=== PATIENT | male | born 1940 | race Caucasian/White ===

== ENCOUNTER 2022-03-21 08:25 | Inpatient (IN) | payer MEDICARE, BC ==
[~2022-03-21] VITALS: Ht 190.5 cm; Wt 113.0 kg
[2022-03-21] MEDS ORDERED: K-DUR20 MEQ PO (08:52)
[2022-03-21] MEDS ORDERED: LASIX 40MG TABL40 MG PO (08:52)
[2022-03-21] MEDS ORDERED: TOPROL XL 25MG25 MG PO (08:53)
[2022-03-21] MEDS ORDERED: SANCTURA20 MG PO (08:53)
[2022-03-21] MEDS ORDERED: SINEMET CR 50 M1 TER PO (08:54)
[2022-03-21] MEDS ORDERED: ZYLOPRIM 300MG300 MG PO (08:54)
[2022-03-21] MEDS ORDERED: ASPIRIN 81M81 MG/TA2 PO (08:55)
[2022-03-21 09:08] LABS: BASO # 0.1 K/mm3 (0.0-0.2); BASO % 0.5 % (0.0-2.0); EOS % 0.1 % (0.0-4.0); GRAN # 9.8 K/mm3 (1.4-6.5); GRAN % 83.2 % (42.2-75.2); LYMPH # 0.8 K/mm3 (1.2-3.4); MEAN CELL VOLUME 96 fl (80.0-100.0); MEAN CORPUSCULAR HGB CONC 32 g/dl (33.0-37.0); MONO % 8.4 % (1.7-9.3); PLATELET COUNT 178 K/mm3 (130-400); RED BLOOD COUNT 3.02 M/mm3 (4.20-5.60); REDCELL DISTRIBUTION WIDTH-CV 15.1 % (11.5-14.5)
[2022-03-21 09:10] LABS: HEMOGLOBIN 9.3 g/dl (13.5-18.0); MEAN CORPUSCULAR HEMOGLOBIN 31 pg (27-31)
[2022-03-21 09:13] LABS: INR 1.3 (0.8-3.0); PROTHROMBIN TIME 15.1 SECONDS (9.7-12.8)
[2022-03-21 09:27] LABS: ALBUMIN 3.6 gm/dL (3.4-4.8); BILIRUBIN,TOTAL 1.5 mg/dL (0.2-1.2); CALCIUM 8.8 mg/dL (8.4-10.2); CREATININE, serum 1.23 mg/dL (0.72-1.25); POTASSIUM 4.4 mmol/L (3.5-4.5); TOTAL PROTEIN 6.5 gm/dL (6.2-8.1)
[2022-03-21 09:47] LABS: TROPONIN-I 0.039 ng/mL (0.00-0.033)
[2022-03-21 13:12] VITALS: BP 110/58; PULSE 94; TEMP 98.7
--- NOTE | 2022-03-21 15:51 | NUR ---
PATIENT ARRIVED IN STABLE CONDITION FROM ENDO. VITALS STABLE., PATINET APPEARS TO BE UNABLE TO KEEP STILL, KEEP SFIDGETING. OCTREOTIDE INFUSING PER ORDER.. WILL CONT TO MONITOR.
[2022-03-21 16:00] VITALS: BP 113/89; BP 139/50; PULSE 79; PULSE 80; TEMP 97.9; TEMP 98.1
--- NOTE | 2022-03-21 16:05 | NUR ---
PATIENT NOT TOLERATING POST OP CONTINOUS VITALS. BECOMING MORE AGITATED, TOLD "THOSE GIRLS" TO GET OUT.(FAMILY WAS AT BEDSIDE AT THIS TIME.) CURRENT VITALS STABLE. PATIENT ABLE TO TAKE MEDICATION AND PO FLUIS WITH NO ISSUE. CHANGED PATIENT D/T SOME BLOODY STOOL. PATIENT UNABLE TO SIT STILL, CONSTANTLY FIDGETING AND MOVING ARMS AND LEGS. BED ALARM ON. CALLIHGT WITH IN REACH. CIWA PROTOCOL INITIATED. [facility].
[2022-03-21 16:23] LABS: HEMATOCRIT 22.4 % (42.0-52.0); HEMOGLOBIN 7.4 g/dl (13.5-18.0)
[2022-03-21 19:36] LABS: CALCIUM 7.8 mg/dL (8.4-10.2); CREATININE, serum 1.17 mg/dL (0.72-1.25); MAGNESIUM 1.9 mg/dL (1.6-2.6); POTASSIUM 4.2 mmol/L (3.5-4.5)
[2022-03-21 20:08] LABS: HEMATOCRIT 22.6 % (42.0-52.0); HEMOGLOBIN 7.4 g/dl (13.5-18.0)
[2022-03-21 20:14] VITALS: BP 127/57; PULSE 109; TEMP 97.8
--- NOTE | 2022-03-21 21:53 | NUR ---
Patient assessed around 2034. Denies having pain and discomfort. Drowsy, but awakens easily. Incontinent of bowel and bladder. Incontinent cares provided, linens changed. On clear liquid diet, NPO after midnight for EGD tomorrow. Patient is aware. Patient scored 4 on detox protocol, and given PRN Ativan. Patient voices no questions, needs, or concerns at this time. In bed with call light within reach. High fall risk precautions in place. Bed alarm on.
[2022-03-21 22:13] VITALS: BP 118/50; PULSE 104; TEMP 98.4
[2022-03-22] VITALS (14 sets, daily range): BP systolic 108–141; BP diastolic 54–80; PULSE 62–127; TEMP 97.4–98.2
[2022-03-22 04:07] LABS: COLLECTION METHOD CLEAN CATCH
[2022-03-22 04:16] LABS: SQUAMOUS EPITHELIAL None Seen /hpf (0-10); URINE APPEARANCE Clear (CLEAR/HAZY); URINE BACTERIA None Seen /hpf (NONE SEEN); URINE BLOOD Negative (NEGATIVE); URINE COLOR Yellow (YELLOW); URINE GLUCOSE Negative (NEGATIVE); URINE KETONE Negative (NEGATIVE); URINE NITRATE Negative (NEGATIVE); URINE PROTEIN(semi-quant) Negative (NEGATIVE); URINE RBC 0-2 /hpf (0-2); URINE UROBILINOGEN 0.2 E.U/dL (0.2-1.0)
--- NOTE | 2022-03-22 05:23 | NUR ---
Patient only recieved PRN Ativan once this shift for detox per protocol. Continues on IV fluids and Octreotide per orders. Has been NPO since midnight for EGD today. Did sign consent for EGD today, does not want blood transfusion if needed during procedure. Urine sample obtained and sent to lab, UA negative. Continues to be in A-fib on telemetry, rate controlled. Has been incontinent of blood stools this shift. Voices no questions, needs, or concerns at this time. In bed with call light within reach. High fall risk precautions in place. Bed alarm on.
[2022-03-22 06:26] LABS: BASO % 0.9 % (0.0-2.0); EOS # 0.2 K/mm3 (0.0-0.7); EOS % 4.9 % (0.0-4.0); GRAN # 3.1 K/mm3 (1.4-6.5); GRAN % 65.7 % (42.2-75.2); LYMPH # 0.6 K/mm3 (1.2-3.4); MEAN CELL VOLUME 100 fl (80.0-100.0); MEAN CORPUSCULAR HGB CONC 32 g/dl (33.0-37.0); MONO # 0.7 K/mm3 (0.1-0.6); MONO % 15.3 % (1.7-9.3); PLATELET COUNT 147 K/mm3 (130-400); RED BLOOD COUNT 2.28 M/mm3 (4.20-5.60); REDCELL DISTRIBUTION WIDTH-CV 15.4 % (11.5-14.5)
[2022-03-22 06:36] LABS: HEMATOCRIT 22.8 % (42.0-52.0); HEMOGLOBIN 7.2 g/dl (13.5-18.0); MEAN CORPUSCULAR HEMOGLOBIN 32 pg (27-31)
[2022-03-22 06:37] LABS: CALCIUM 8.2 mg/dL (8.4-10.2); CREATININE, serum 1.23 mg/dL (0.72-1.25); MAGNESIUM 2.1 mg/dL (1.6-2.6); POTASSIUM 3.9 mmol/L (3.5-4.5)
[2022-03-22 06:59] LABS: TSH w REFLEX 0.572 uIU/mL (0.350-4.940)
[2022-03-22 07:03] LABS: TROPONIN-I 0.055 ng/mL (0.00-0.033)
--- NOTE | 2022-03-22 07:25 | NUR ---
Patient sleeping in bed in a brief, no gown. IV CDI, fluids infusing. Call light within reach. Bed alarm on
--- NOTE | 2022-03-22 08:00 | NUR ---
Patient laying in bed, easily awakened with verbal command, but the falls back to sleep. A&O. VSS. IV CDI, fluids infusing. Incontinent of BM. Nursing staff cleaning up the patient and positioned for comfort. NPO for a procedure. Call light within reach. Bed alarm on
--- NOTE | 2022-03-22 09:15 | NUR ---
Patient back to room 310 from a procedure. A&Ox4. VSS. IV CDI, fluids infusing. Nurse assisted with changing brief. Denies pain and discomfort. Nurse reoriented the patient to location, room and call light. Call light within reach. Bed alarm on
--- NOTE | 2022-03-22 10:35 | NUR ---
Balance Wheel Hand Filer met with patient to discuss discharge planning. Patient lives in [place] with his , Laly (ph#[phone]) who is at bedside. Patient sees Dr. Bolanos for primary care and obtains medications from [facility] pharmacy with no difficulties. Jose uses a cane for ambulation and also has a wheelchair that he uses when out in the community for convenience. Patient's reports [facility] is handicap accessible and that they also have a privately hired INDEPENDENT PRODUCER that comes to the home M-F to provide patient assistance. Patient plans to return home at time of discharge and is hopeful he can attend the [employer] game tomorrow. Patient states he has completed DPOA-HC, but when questioned this, he stated "whatever". SW requested PT/OT orders. Discharge Plan: Home
[2022-03-22 16:10] LABS: HEMATOCRIT 21.4 % (42.0-52.0)
--- NOTE | 2022-03-22 19:00 | NUR ---
PT ТАТЬЯНА FROM MARGARITO GUTIERREZ. THE PATIENT IS UP TO THE BATHROOM WITH PCT. CALLED FOR ASSISTANCE. PER REPORT, THE PATIENT HAS BEEN LESS IMPULSIVE AND CIWA HAS BEEN SCORING A 1.
--- NOTE | 2022-03-22 19:09 | NUR ---
Patient has had several incontinent black stools. SB assist with walker and gait belt to the bathroom. A&Ox3. VSS. IV CDI. Denies pain and discomfort. Tolerating a clear liquid diet. No further needs expressed. Call light within reach. Bed alarm on
[2022-03-23] VITALS (16 sets, daily range): BP systolic 109–141; BP diastolic 59–98; PULSE 57–101; TEMP 97.8–98.4
[2022-03-23 04:10] LABS: BASO % 0.3 % (0.0-2.0); EOS # 0.2 K/mm3 (0.0-0.7); EOS % 6.7 % (0.0-4.0); GRAN # 1.9 K/mm3 (1.4-6.5); GRAN % 56.9 % (42.2-75.2); LYMPH # 0.7 K/mm3 (1.2-3.4); LYMPH % 21.1 % (20.0-51.0); MEAN CELL VOLUME 96 fl (80.0-100.0); MEAN CORPUSCULAR HGB CONC 32 g/dl (33.0-37.0); MEAN PLATELET VOLUME 10.3 fl (7.4-10.4); MONO # 0.5 K/mm3 (0.1-0.6); MONO % 14.7 % (1.7-9.3); PLATELET COUNT 105 K/mm3 (130-400); RED BLOOD COUNT 2.35 M/mm3 (4.20-5.60); REDCELL DISTRIBUTION WIDTH-CV 15.9 % (11.5-14.5)
[2022-03-23 04:31] LABS: CREATININE, serum 0.96 mg/dL (0.72-1.25); POTASSIUM 3.5 mmol/L (3.5-4.5)
[2022-03-23 04:40] LABS: HEMATOCRIT 22.5 % (42.0-52.0); HEMOGLOBIN 7.3 g/dl (13.5-18.0); MEAN CORPUSCULAR HEMOGLOBIN 31 pg (27-31)
[2022-03-23 04:50] LABS: MAGNESIUM 2.1 mg/dL (1.6-2.6)
--- NOTE | 2022-03-23 08:00 | NUR ---
Patient sleeping in bed, easily awakened with verbal command, A&Ox3. VSS. IV CDI. Denies pain and discomfort. No reported loose stools. No further needs expressed. Call light within reach. Bed alarm on
[2022-03-23 12:25] LABS: HEMATOCRIT 21.8 % (42.0-52.0); HEMOGLOBIN 7.1 g/dl (13.5-18.0)
--- NOTE | 2022-03-23 15:48 | NUR ---
Blood transfuion started. Patient A&Ox3 sleeping, but easily awakens with verbal command. IV CDI. Denies pain and discomfort. at the bedside. VS monitored. Call light within reach. Bed alarm on
--- NOTE | 2022-03-23 16:02 | NUR ---
Nurse at the bedside first 15 minutes. Patient tolerating the blood transfusion. VSS. IV CDI. Denies pain and discomfort. Will continue to monitor. Call light within reach
--- NOTE | 2022-03-23 18:05 | NUR ---
Blood transfusion completed. Patient A&Ox4. VSS. IV CDI. Denies pain and discomfort. Patient sitting up on side of bed eating dinner with at the bedside. Has had an uneventful day. Call light within reach. Bed alarm on
[2022-03-24 00:09] VITALS: BP 97/56; PULSE 96; TEMP 98.3
[2022-03-24 04:45] VITALS: BP 110/75; PULSE 75; TEMP 97.5
[2022-03-24 06:42] LABS: BASO % 0.2 % (0.0-2.0); EOS # 0.2 K/mm3 (0.0-0.7); EOS % 3.7 % (0.0-4.0); GRAN # 2.3 K/mm3 (1.4-6.5); GRAN % 56.4 % (42.2-75.2); LYMPH # 1.1 K/mm3 (1.2-3.4); LYMPH % 26.8 % (20.0-51.0); MEAN CELL VOLUME 97 fl (80.0-100.0); MEAN CORPUSCULAR HGB CONC 32 g/dl (33.0-37.0); MEAN PLATELET VOLUME 10.7 fl (7.4-10.4); MONO # 0.5 K/mm3 (0.1-0.6); MONO % 12.4 % (1.7-9.3); PLATELET COUNT 115 K/mm3 (130-400); RED BLOOD COUNT 2.66 M/mm3 (4.20-5.60); REDCELL DISTRIBUTION WIDTH-CV 16.8 % (11.5-14.5)
[2022-03-24 06:45] LABS: HEMATOCRIT 25.7 % (42.0-52.0); HEMOGLOBIN 8.2 g/dl (13.5-18.0); MEAN CORPUSCULAR HEMOGLOBIN 31 pg (27-31)
[2022-03-24 07:06] LABS: CALCIUM 8.1 mg/dL (8.4-10.2); CREATININE, serum 0.99 mg/dL (0.72-1.25); MAGNESIUM 2.2 mg/dL (1.6-2.6); POTASSIUM 3.6 mmol/L (3.5-4.5)
[2022-03-24 07:42] VITALS: BP 115/73; PULSE 71; TEMP 97.9
--- NOTE | 2022-03-24 07:53 | NUR ---
Patient sitting up on the side of bed, A&Ox4. VSS. IV CDI. Denies pain and discomfort. States that he "feels better". No further needs expressed. Call light within reach
[2022-03-24] MEDS ORDERED: FERROUS SU325 MG/TAB PO (08:53)
[2022-03-24] MEDS ORDERED: PROTONIX 40MG T40 MG PO (08:54)
[2022-03-24] MEDS ORDERED: CARAFATE 1GM1 G PO (08:54)
--- NOTE | 2022-03-24 09:50 | NUR ---
CALLED BY MEDICAL CHARGE NURSE TO COME REMOVE PICC LINE PER ORDERS. PATIENT POSITIONED WITH HOB FLAT, INSTRUCTED TO TAKE A DEEP BREATH AND BLOW, RUE PICC LINE REMOVED EASILY. PATIENT TOLERATED WELL. NOTED BLUNT END INTACT TO PICC LINE. HELD PRESSURE, COVERED SITE WITH GAUZE, TEGADERM, AND SOFT ACEWRAP. PATIENT GIVEN POST PICC LINE REMOVAL EDUCATION BY NURSE, I GAVE FLAT TIME AND RUE RESTRICTION EDUCATION POST PICC LINE REMOVAL. AT BEDSIDE. SEE DOCUMENTATION.
--- NOTE | 2022-03-24 11:05 | NUR ---
Discharge paperwork reviewed with the patient and at the bedside. Patient verbalized an understanding to follow doctors orders. PICC line removed by MARGARITO Izquierdo. Patient transfered by wheelchair to awaiting vehicle. Personal belongings with the patient.
== END 2022-03-24 11:05 | disposition home or self-care (01) | DRG 377 ==
LOC: COL.ER 08:25 → MEDICAL 09:59
PROVIDERS: Emergency Medicine; Internal Medicine Gastroenterology; Physician Assistant; ADMIT Internal Medicine
PROC: 0DJ08ZZ Inspection of Upper Intestinal Tract, Via Natural or Artificial Opening Endoscopic (ICD-10-PCS; 2022-03-21)
PROC: 02H633Z Insertion of Infusion Device into Right Atrium, Percutaneous Approach (ICD-10-PCS; principal; 2022-03-21 15:45)
PROC: 0DJD8ZZ Inspection of Lower Intestinal Tract, Via Natural or Artificial Opening Endoscopic (ICD-10-PCS; 2022-03-22)
DX: K29.71 Gastritis, unspecified, with bleeding (principal); I21.A1 Myocardial infarction type 2; D62 Acute posthemorrhagic anemia; I48.21 Permanent atrial fibrillation; I47.20 Ventricular tachycardia, unspecified; E87.20 Acidosis, unspecified; F10.90 Alcohol use, unspecified, uncomplicated; D72.829 Elevated white blood cell count, unspecified; G20 Parkinson's disease; I11.0 Hypertensive heart disease with heart failure; I50.9 Heart failure, unspecified; I08.3 Combined rheumatic disorders of mitral, aortic and tricuspid valves; N40.0 Benign prostatic hyperplasia without lower urinary tract symptoms; E78.5 Hyperlipidemia, unspecified; Z79.82 Long term (current) use of aspirin
CPT/HCPCS: C1751; C9113; G0378; J2060; J2354; J2405; J2704; J3411; J7030; J7040; J7050; J7120; P9016

== ENCOUNTER 2022-06-17 13:52 | Emergency (ER) | payer MEDICARE, BC ==
[~2022-06-17] VITALS: Ht 190.5 cm; Wt 123.6 kg
[~2022-06-17 13:52] MED LIST: ASPIRIN 81M81 MG/TA2 PO; CARAFATE 1GM1 G PO; FERROUS SU325 MG/TAB PO; K-DUR20 MEQ PO; LASIX 20MG TABL20 MG PO; LASIX 40MG TABL40 MG PO; OMNICEF 300MG300 MG PO; PARCOPA 25/101 UDTAB NG; PROTONIX 40MG T40 MG PO; SANCTURA20 MG PO; SINEMET CR 50 M1 TER PO; TOPROL XL 25MG25 MG PO; ZYLOPRIM 100MG100 MG PO; ZYLOPRIM 300MG300 MG PO
[2022-06-17 14:11] VITALS: TEMP 92.4
[2022-06-17 15:06] LABS: BASO % 0.5 % (0.0-2.0); EOS % 0.5 % (0.0-4.0); GRAN # 3.3 K/mm3 (1.4-6.5); GRAN % 78.9 % (42.2-75.2); HEMOGLOBIN 10.4 g/dl (13.5-18.0); LYMPH # 0.5 K/mm3 (1.2-3.4); MEAN CELL VOLUME 80 fl (80.0-100.0); MEAN CORPUSCULAR HEMOGLOBIN 25 pg (27-31); MEAN CORPUSCULAR HGB CONC 31 g/dl (33.0-37.0); MEAN PLATELET VOLUME 10.7 fl (7.4-10.4); MONO # 0.3 K/mm3 (0.1-0.6); MONO % 7.9 % (1.7-9.3); PLATELET COUNT 218 K/mm3 (130-400); RED BLOOD COUNT 4.24 M/mm3 (4.20-5.60); REDCELL DISTRIBUTION WIDTH-CV 18.6 % (11.5-14.5)
[2022-06-17 15:07] LABS: HEMATOCRIT 33.9 % (42.0-52.0); INR 1.7 (0.8-3.0); PROTHROMBIN TIME 19.8 SECONDS (9.7-12.8)
[2022-06-17 15:17] LABS: ALBUMIN 3.7 gm/dL (3.4-4.8); BILIRUBIN,TOTAL 3.1 mg/dL (0.2-1.2); CALCIUM 9.3 mg/dL (8.4-10.2); CREATININE, serum 1.31 mg/dL (0.72-1.25); POTASSIUM 4.1 mmol/L (3.5-4.5); TOTAL PROTEIN 6.7 gm/dL (6.2-8.1)
[2022-06-17 17:00] VITALS: BP 119/86; PULSE 86
== END 2022-06-17 17:00 | disposition home or self-care (01) ==
LOC: COL.ER 13:52
PROVIDERS: Personal Emergency Response Attendant
DX: R09.02 Hypoxemia (principal); R18.8 Other ascites; R55 Syncope and collapse; E80.7 Disorder of bilirubin metabolism, unspecified; Z28.310 Unvaccinated for COVID-19

== ENCOUNTER 2022-06-25 10:05 | Inpatient (IN) | payer MEDICARE, BC ==
[~2022-06-25] VITALS: Ht 190.5 cm; Wt 126.9 kg
[~2022-06-25 10:05] MED LIST changes: -PARCOPA 25/101 UDTAB NG; +PARCOPA 25/101 UDTAB PO
[2022-06-25 10:48] LABS: COLLECTION METHOD CATHETER
[2022-06-25 11:14] LABS: SQUAMOUS EPITHELIAL 0-2 /hpf (0-10); URINE APPEARANCE Clear (CLEAR/HAZY); URINE BACTERIA Rare /hpf (NONE SEEN); URINE COLOR Yellow (YELLOW); URINE RBC 0-2 /hpf (0-2)
[2022-06-25] MEDS ORDERED: SANCTURA20 MG PO (11:14)
[2022-06-25 11:15] LABS: URINE BLOOD TRACE-INTACT (NEGATIVE); URINE GLUCOSE Negative (NEGATIVE); URINE KETONE TRACE (NEGATIVE); URINE NITRATE Negative (NEGATIVE); URINE PROTEIN(semi-quant) 1+ (NEGATIVE); URINE UROBILINOGEN 0.2 E.U/dL (0.2-1.0)
[2022-06-25] MEDS ORDERED: LASIX 20MG TABL20 MG PO (11:15)
[2022-06-25 12:01] LABS: BASO % 0.2 % (0.0-2.0); EOS # 0.1 K/mm3 (0.0-0.7); EOS % 2.1 % (0.0-4.0); GRAN # 4.4 K/mm3 (1.4-6.5); GRAN % 77.5 % (42.2-75.2); INR 1.6 (0.8-3.0); LYMPH # 0.7 K/mm3 (1.2-3.4); LYMPH % 12.9 % (20.0-51.0); MEAN CELL VOLUME 77 fl (80.0-100.0); MEAN CORPUSCULAR HGB CONC 31 g/dl (33.0-37.0); MEAN PLATELET VOLUME 11.1 fl (7.4-10.4); MONO # 0.4 K/mm3 (0.1-0.6); MONO % 6.9 % (1.7-9.3); PLATELET COUNT 111 K/mm3 (130-400); PROTHROMBIN TIME 18.6 SECONDS (9.7-12.8); RED BLOOD COUNT 4.05 M/mm3 (4.20-5.60); REDCELL DISTRIBUTION WIDTH-CV 18.6 % (11.5-14.5)
[2022-06-25 12:02] LABS: HEMATOCRIT 31.3 % (42.0-52.0); HEMOGLOBIN 9.7 g/dl (13.5-18.0); MEAN CORPUSCULAR HEMOGLOBIN 24 pg (27-31)
[2022-06-25 12:11] LABS: ALBUMIN 3.2 gm/dL (3.4-4.8); BILIRUBIN,TOTAL 2.8 mg/dL (0.2-1.2); CALCIUM 8.7 mg/dL (8.4-10.2); CREATININE, serum 1.3 mg/dL (0.72-1.25); POTASSIUM 3.9 mmol/L (3.5-4.5); TOTAL PROTEIN 5.8 gm/dL (6.2-8.1)
[2022-06-25 14:15] VITALS: BP 112/71; PULSE 80; TEMP 94.4
--- NOTE | 2022-06-25 16:39 | NUR ---
PATIENT IS NEW ADMISSION TO THE UNIT. AXOX4. VS STABLE, BUT TEMP IS RUNNING BETWEEN 94-95 AXILLARY. PATIENT IS WEARING THE BEAR HUGGER DEVICE ON. X2 PERSON ASSIST. PATIENT HAD FALLS AT HOME. FLUID IN THE ABD. PEROCENTESIS WAS ATTEMPTED, BUT US SAID THERE WAS NOT ENOUGH FLUID. BLE EDEME 3+ WITH REDNESS ON BOTH FEET. THE RIGHT FOOT PER THE WEEPS CONSTANTLY. WOUND CULTURE COLLCTED FROM THE SITE, RESULTS PENDING. PICC TO THE [facility]. DOUBLE LUMEN. BED ALARM ON.
[2022-06-25 16:54] VITALS: TEMP 97.9
[2022-06-25 19:59] VITALS: BP 127/64; PULSE 91; TEMP 97.7
--- NOTE | 2022-06-25 20:00 | NUR ---
Initial shift assessment done- restless tonight- throwing legs over the side rail-is alert/oriented at this time- Burrell with carlee urine/ PICC to ALEJANDRO w/Zosyn and Vancomycin infusing, Bilateral edema to legs, R>L, right leg red- wants to sit at edge of bed/very unsteady - did lay down after a few minutes.
[2022-06-26] VITALS (10 sets, daily range): BP systolic 101–135; BP diastolic 66–99; PULSE 74–99; TEMP 97.2–98.5
--- NOTE | 2022-06-26 06:06 | NUR ---
States pain to legs-- called jose PA =Tylenol ordered and given. Slept fair, at times confused during the night.
[2022-06-26 06:50] LABS: BASO % 0.3 % (0.0-2.0); EOS % 0.4 % (0.0-4.0); GRAN # 5.6 K/mm3 (1.4-6.5); GRAN % 82.5 % (42.2-75.2); LYMPH # 0.6 K/mm3 (1.2-3.4); LYMPH % 8.1 % (20.0-51.0); MEAN CELL VOLUME 80 fl (80.0-100.0); MEAN CORPUSCULAR HGB CONC 30 g/dl (33.0-37.0); MEAN PLATELET VOLUME 11.4 fl (7.4-10.4); MONO # 0.6 K/mm3 (0.1-0.6); MONO % 8.4 % (1.7-9.3); PLATELET COUNT 120 K/mm3 (130-400); RED BLOOD COUNT 4.09 M/mm3 (4.20-5.60); REDCELL DISTRIBUTION WIDTH-CV 18.8 % (11.5-14.5)
[2022-06-26 07:03] LABS: HEMATOCRIT 32.7 % (42.0-52.0); HEMOGLOBIN 9.7 g/dl (13.5-18.0); MEAN CORPUSCULAR HEMOGLOBIN 24 pg (27-31)
[2022-06-26 07:16] LABS: ALBUMIN 3.3 gm/dL (3.4-4.8); BILIRUBIN,TOTAL 3.4 mg/dL (0.2-1.2); CALCIUM 8.9 mg/dL (8.4-10.2); CREATININE, serum 1.37 mg/dL (0.72-1.25); POTASSIUM 4.6 mmol/L (3.5-4.5); TOTAL PROTEIN 6.1 gm/dL (6.2-8.1)
--- NOTE | 2022-06-26 14:48 | NUR ---
MARKY contacted the patients Laly ([phone]) to complete intake. Per Laly, she and the patient live together in [place]. They currently have a private duty care givers that comes out to the home to assist with the patients medications.Laly verbalizes that the patient is able to complete his ADL's on his own. Patient has a cane, walker and a zinger wheelchair to assist with mobility. PCP is Dr. Bolanos and they utilize [facility] pharmacy for prescriptions. Laly states that they do have a DPOA-HC established and that it's at their home. Discharge plan: Pending PT/OT recs
--- NOTE | 2022-06-26 15:29 | NUR ---
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 PATIENT TOLERATED WELL. NEW EXTERNAL CATH PLACED THE OLD ONE FELL OFF.
--- NOTE | 2022-06-26 15:35 | NUR ---
PT CONTINUES TO BE DROWSY BUT AWAKES WHEN NAME CALLED. RESP EVEN AND EASY. APPETITE IS FAIR AND MUST BE ASSISTED WITH MEALS.
--- NOTE | 2022-06-26 17:49 | NUR ---
PT NOT VOIDED SINCE POSADA REMOVED, BLADDER SCANNER REVEALS 279ML OF FLUID IN BLADDER, DR. BAZAN INFORMED, WANTS US TO RECHECK IN 2 HOURS.
--- NOTE | 2022-06-26 20:00 | NUR ---
PT SLEEPING. DIFFICULT TO WAKE. STERNAL RUB. WAKES UP IMMEDIATELY. SMILES. CONFUSED. TAKES PO PILLS WELL. ORIENTED TO MONTH AND YEAR AND PLACE. PT INCONTINENT LG AMT URINE WITH MED STOOL. CHANGED AT THIS TIME. PT HELPS TO TURN HIMSELF. IVF POSTIONAL WITH BEND OF ARM. DRIFTS TO SLLEP. CALL LIGHT IN REACH. BED ALARM SET.
--- NOTE | 2022-06-26 23:08 | NUR ---
PLACED MAZIN WRAP TO LLE FOR COMPRESSION ORDERED BILAT. RT ALREADY HAS MAZIN LD.
[2022-06-27] VITALS (8 sets, daily range): BP systolic 99–110; BP diastolic 67–81; PULSE 70–77; TEMP 97.3–97.9
[2022-06-27 05:58] LABS: BASO % 0.8 % (0.0-2.0); EOS # 0.2 K/mm3 (0.0-0.7); EOS % 3.2 % (0.0-4.0); GRAN # 3.6 K/mm3 (1.4-6.5); GRAN % 71.6 % (42.2-75.2); LYMPH # 0.7 K/mm3 (1.2-3.4); LYMPH % 14.4 % (20.0-51.0); MEAN CELL VOLUME 81 fl (80.0-100.0); MEAN CORPUSCULAR HGB CONC 29 g/dl (33.0-37.0); MEAN PLATELET VOLUME 10.8 fl (7.4-10.4); MONO # 0.5 K/mm3 (0.1-0.6); MONO % 9.6 % (1.7-9.3); PLATELET COUNT 103 K/mm3 (130-400); REDCELL DISTRIBUTION WIDTH-CV 18.8 % (11.5-14.5)
[2022-06-27 06:05] LABS: HEMATOCRIT 31.4 % (42.0-52.0); HEMOGLOBIN 9.2 g/dl (13.5-18.0); MEAN CORPUSCULAR HEMOGLOBIN 24 pg (27-31)
[2022-06-27 06:17] LABS: ALBUMIN 3.1 gm/dL (3.4-4.8); ALKALINE PHOSPHATASE 92 U/L (40-150); ANION GAP 11 mmol/L (7-16); AST,SGOT 30 U/L (5-34); BILIRUBIN,TOTAL 3.1 mg/dL (0.2-1.2); BLOOD UREA NITROGEN 28 mg/dL (8-26); C-REACTIVE PROTEIN 5.73 mg/dL (0.00-0.50); CARBON DIOXIDE 22 mmol/L (23-31); CHLORIDE 106 mmol/L (98-107); GLUCOSE 83 mg/dL (70-99); POTASSIUM 4.1 mmol/L (3.5-4.5); SODIUM 139 mmol/L (136-145); TOTAL PROTEIN 5.9 gm/dL (6.2-8.1)
[2022-06-27 06:18] LABS: ALANINE AMINOTRANSFERASE < 6 U/L (0-55)
--- NOTE | 2022-06-27 14:02 | NUR ---
PT is recommending to consider post-acute care options. SW contacted the patient's , Laly (ph#[phone]), to discuss their recommendation. Laly states that they have an exercise room and a national sales trainer that comes in 4 times a week. She shares that the patient has a appointment at [facility] in [place], [place] on Friday and they will be attending that. She states that the plan is for the patient to return home upon discharge and they will resume his sessions with the national sales trainer. MARKY inquired if the patient is still receiving services from [facility]. Laly states that he is not, but she would like to get this started again. MARKY attempted to contact Oma at [facility]. MARKY left her a voicemail and faxed over the referral. *Discharge plan: home with , home health, and previous services*
[2022-06-28] VITALS (8 sets, daily range): BP systolic 99–144; BP diastolic 66–78; PULSE 61–79; TEMP 97.4–97.6
--- NOTE | 2022-06-28 05:30 | NUR ---
ASSESSMENT COMPLETE FOR WILL CALL CLERK. PT COMPLAINED OF LEG CRAMPS. PT GIVEN TYLENOL AND A LEG MASSAGE FOR CRAMPS. PT FELT THE TYLENOL AND MASSAGE WAS EFFECTIVE FOR LEG CRAMPS. PT WAS INCONTINENT OF URINE SEVERAL TIMES THIS SHIFT, BUT WAS ALSO ABLE TO USE THE URINAL. SEVERAL BED CHANGES AND HYGIENE PERFORM FOR pt. PT SCORED 0 ON ALL HIS ABSTINENCE/ALCOHOL WITHDRAWAL SCORING. PT EXPRESSED NO ADDITIONAL NEEDS AT THIS TIME. CALL LIGHT WITHIN REACH.
[2022-06-28 07:08] LABS: BASO # 0.1 K/mm3 (0.0-0.2); EOS # 0.2 K/mm3 (0.0-0.7); EOS % 4.1 % (0.0-4.0); GRAN # 3.5 K/mm3 (1.4-6.5); GRAN % 72.1 % (42.2-75.2); LYMPH # 0.6 K/mm3 (1.2-3.4); MEAN CELL VOLUME 78 fl (80.0-100.0); MEAN CORPUSCULAR HGB CONC 30 g/dl (33.0-37.0); MEAN PLATELET VOLUME 10.5 fl (7.4-10.4); MONO # 0.5 K/mm3 (0.1-0.6); MONO % 10.6 % (1.7-9.3); PLATELET COUNT 102 K/mm3 (130-400); RED BLOOD COUNT 3.64 M/mm3 (4.20-5.60); REDCELL DISTRIBUTION WIDTH-CV 18.6 % (11.5-14.5)
[2022-06-28 07:11] LABS: HEMATOCRIT 28.3 % (42.0-52.0); HEMOGLOBIN 8.6 g/dl (13.5-18.0); MEAN CORPUSCULAR HEMOGLOBIN 24 pg (27-31)
[2022-06-28 07:25] LABS: ALBUMIN 2.7 gm/dL (3.4-4.8); BILIRUBIN,TOTAL 2.5 mg/dL (0.2-1.2); CALCIUM 7.6 mg/dL (8.4-10.2); CREATININE, serum 1.01 mg/dL (0.72-1.25); POTASSIUM 3.4 mmol/L (3.5-4.5); TOTAL PROTEIN 5.1 gm/dL (6.2-8.1)
--- NOTE | 2022-06-28 08:00 | NUR ---
Pt sitting up in chair. Jazmin,Student providing pt care today. Shift assessment completed. PICC in ALEJANDRO in place; no edema or redness. NILSA edematous; MATILDE Hale notified and aware. BLE with yudelka wraps in place. BLE elevated on pillows. Denies c/o pain at this time. Call light within reach.
[2022-06-28] MEDS ORDERED: AMOXICILLIN 8751 TAB PO (10:01)
[2022-06-28] MEDS ORDERED: BACTRIM DS 8001 TAB PO (10:01)
--- NOTE | 2022-06-28 11:08 | NUR ---
DRESSING CHANGE PERFORMED ON RLE BY STUDENT. PRIMARY NURSE ERIK BOWIE SHOWN WOUND. REPLACED WITH XEROFORM, NON-ADHERENT PAD, KERLIX, MAZIN WRAP.
--- NOTE | 2022-06-28 14:50 | NUR ---
Oma, at [facility], left SW a voicemail. Oma states that the patient is currently on services with them and they can resume services upon discharge.
--- NOTE | 2022-06-28 18:40 | NUR ---
Gauze on ABD replaced x2 as it continues to become saturated with serous fluid. MATILDE Monge notified; this nurse was told to contact who conducted the paracentesis. Contacted [facility] and was instructed to have the hospitalist provide a stitch or continue to change the dressing. This nurse notified MATILDE Monge of their response. No new orders.
[2022-06-29 04:28] VITALS: BP 108/73; PULSE 77; TEMP 97.4
[2022-06-29 06:43] LABS: BASO # 0.1 K/mm3 (0.0-0.2); BASO % 1.1 % (0.0-2.0); EOS # 0.3 K/mm3 (0.0-0.7); EOS % 4.5 % (0.0-4.0); GRAN # 4.1 K/mm3 (1.4-6.5); GRAN % 73.5 % (42.2-75.2); LYMPH # 0.6 K/mm3 (1.2-3.4); LYMPH % 11.4 % (20.0-51.0); MEAN CELL VOLUME 79 fl (80.0-100.0); MEAN CORPUSCULAR HGB CONC 30 g/dl (33.0-37.0); MEAN PLATELET VOLUME 10.4 fl (7.4-10.4); MONO # 0.5 K/mm3 (0.1-0.6); MONO % 9.1 % (1.7-9.3); PLATELET COUNT 101 K/mm3 (130-400); RED BLOOD COUNT 4.12 M/mm3 (4.20-5.60); REDCELL DISTRIBUTION WIDTH-CV 18.8 % (11.5-14.5)
[2022-06-29 06:45] LABS: HEMATOCRIT 32.7 % (42.0-52.0); HEMOGLOBIN 9.8 g/dl (13.5-18.0); MEAN CORPUSCULAR HEMOGLOBIN 24 pg (27-31)
[2022-06-29 06:57] LABS: C-REACTIVE PROTEIN 3.11 mg/dL (0.00-0.50); CALCIUM 8.8 mg/dL (8.4-10.2); CREATININE, serum 1.04 mg/dL (0.72-1.25); MAGNESIUM 2.2 mg/dL (1.6-2.6); POTASSIUM 3.8 mmol/L (3.5-4.5)
[2022-06-29 07:50] VITALS: BP 114/66; PULSE 69; TEMP 98.4
--- NOTE | 2022-06-29 08:00 | NUR ---
Patient laying in bed A&Ox3. VSS. IV CDI, fluids infusing. Denies pain and discomfort. Call light within reach. Bed alarm on
[2022-06-29 11:27] VITALS: BP 121/65; PULSE 74; TEMP 97.8
[2022-06-29 15:34] VITALS: BP 114/87; PULSE 69; TEMP 97.6
[2022-06-29 20:36] VITALS: BP 105/63; PULSE 81; TEMP 97.4
[2022-06-29 23:14] VITALS: BP 100/71; PULSE 70; TEMP 97.3
[2022-06-30 03:44] VITALS: BP 102/65; PULSE 83; TEMP 97.9
[2022-06-30 04:55] LABS: BASO % 0.7 % (0.0-2.0); EOS # 0.3 K/mm3 (0.0-0.7); EOS % 5.5 % (0.0-4.0); GRAN % 72.6 % (42.2-75.2); LYMPH # 0.6 K/mm3 (1.2-3.4); LYMPH % 11.3 % (20.0-51.0); MEAN CELL VOLUME 82 fl (80.0-100.0); MEAN CORPUSCULAR HGB CONC 29 g/dl (33.0-37.0); MEAN PLATELET VOLUME 11.1 fl (7.4-10.4); MONO # 0.5 K/mm3 (0.1-0.6); MONO % 9.7 % (1.7-9.3); PLATELET COUNT 103 K/mm3 (130-400); RED BLOOD COUNT 3.93 M/mm3 (4.20-5.60); REDCELL DISTRIBUTION WIDTH-CV 18.7 % (11.5-14.5)
[2022-06-30 04:57] LABS: HEMATOCRIT 32.1 % (42.0-52.0); HEMOGLOBIN 9.3 g/dl (13.5-18.0); MEAN CORPUSCULAR HEMOGLOBIN 24 pg (27-31)
[2022-06-30 05:13] LABS: ALBUMIN 2.8 gm/dL (3.4-4.8); ALKALINE PHOSPHATASE 88 U/L (40-150); ANION GAP 9 mmol/L (7-16); AST,SGOT 27 U/L (5-34); BILIRUBIN,TOTAL 2.4 mg/dL (0.2-1.2); BLOOD UREA NITROGEN 20 mg/dL (8-26); CALCIUM 8.2 mg/dL (8.4-10.2); CARBON DIOXIDE 24 mmol/L (23-31); CHLORIDE 107 mmol/L (98-107); GLUCOSE 84 mg/dL (70-99); POTASSIUM 3.7 mmol/L (3.5-4.5); SODIUM 140 mmol/L (136-145); TOTAL PROTEIN 5.5 gm/dL (6.2-8.1)
[2022-06-30 05:14] LABS: ALANINE AMINOTRANSFERASE < 6 U/L (0-55)
[2022-06-30 07:34] VITALS: BP 106/75; PULSE 77; TEMP 97.8
--- NOTE | 2022-06-30 08:00 | NUR ---
Patient laying in bed, A&Ox3. VSS. IV CDI, fluids infusing. Denies pain and discomfort. Scrotum elevated with towel. Call light within reach. Bed alarm on
[2022-06-30 11:35] VITALS: BP 125/64; PULSE 70; TEMP 97.4
--- NOTE | 2022-06-30 12:41 | NUR ---
Inside [employer] rounds: Patient is concerned about his in [facility]. She had a stroke. His son and daughter (who flew here from [place]) are visiting his today. [employer] prayed for healing for both Patient and his , and for safe travels for the son and daughter.
[2022-06-30 15:20] VITALS: BP 112/77; PULSE 70; TEMP 98
[2022-06-30 21:34] VITALS: BP 107/75; PULSE 82; TEMP 98.2
[2022-06-30 23:20] VITALS: BP 114/69; PULSE 86; TEMP 98.1
[2022-07-01 03:15] VITALS: BP 119/73; PULSE 79; TEMP 99.2
[2022-07-01 06:32] LABS: BASO # 0.1 K/mm3 (0.0-0.2); BASO % 1.3 % (0.0-2.0); EOS # 0.3 K/mm3 (0.0-0.7); GRAN # 4.5 K/mm3 (1.4-6.5); GRAN % 73.4 % (42.2-75.2); LYMPH # 0.7 K/mm3 (1.2-3.4); LYMPH % 10.6 % (20.0-51.0); MEAN CELL VOLUME 78 fl (80.0-100.0); MEAN CORPUSCULAR HGB CONC 30 g/dl (33.0-37.0); MEAN PLATELET VOLUME 11.5 fl (7.4-10.4); MONO # 0.6 K/mm3 (0.1-0.6); MONO % 9.4 % (1.7-9.3); PLATELET COUNT 102 K/mm3 (130-400); RED BLOOD COUNT 3.91 M/mm3 (4.20-5.60); REDCELL DISTRIBUTION WIDTH-CV 18.5 % (11.5-14.5)
[2022-07-01 06:35] LABS: HEMATOCRIT 30.3 % (42.0-52.0); HEMOGLOBIN 9.2 g/dl (13.5-18.0); MEAN CORPUSCULAR HEMOGLOBIN 24 pg (27-31)
[2022-07-01 06:47] LABS: ALBUMIN 2.6 gm/dL (3.4-4.8); ALKALINE PHOSPHATASE 82 U/L (40-150); ANION GAP 10 mmol/L (7-16); AST,SGOT 21 U/L (5-34); BILIRUBIN,TOTAL 2.1 mg/dL (0.2-1.2); BLOOD UREA NITROGEN 20 mg/dL (8-26); C-REACTIVE PROTEIN 1.85 mg/dL (0.00-0.50); CALCIUM 8.2 mg/dL (8.4-10.2); CARBON DIOXIDE 26 mmol/L (23-31); CHLORIDE 106 mmol/L (98-107); CREATININE, serum 0.85 mg/dL (0.72-1.25); GLUCOSE 86 mg/dL (70-99); POTASSIUM 3.7 mmol/L (3.5-4.5); SODIUM 142 mmol/L (136-145); TOTAL PROTEIN 5.4 gm/dL (6.2-8.1)
[2022-07-01 07:02] LABS: ALANINE AMINOTRANSFERASE < 6 U/L (0-55)
[2022-07-01 08:35] VITALS: BP 106/71; BP 98/63; PULSE 77; TEMP 98.2
--- NOTE | 2022-07-01 09:00 | NUR ---
Pt sitting up in chair. Morning medications administered per eMAR. Shift assessment completed. VSS. PICC in R upper arm remains in place. ABD dressing remains in place; CDI. BLE remain wrapped. Denies c/o pain at this time. Call light within reach.
[2022-07-01 11:50] VITALS: BP 101/72; PULSE 81; TEMP 97.6
[2022-07-01 15:36] VITALS: BP 110/67; PULSE 78; TEMP 98
--- NOTE | 2022-07-01 20:00 | NUR ---
Assessment complete. A&Ox4-forgetful. Denies pain/nausea/shortness of breath. VS remain stable. PICC to right upper arm flushes well with good blood return. Bilat dressings to lower extremities with yudelka bandage wraps-CDI. Plan of care discussed for this shift to include meds/calling for questions/concerns. Verbalizes understanding. Call light in reach. Will monitor.
[2022-07-01 20:32] VITALS: BP 123/88; PULSE 80; TEMP 97.8
[2022-07-01 23:18] VITALS: BP 101/61; PULSE 69; TEMP 97.4
[2022-07-02 03:23] VITALS: BP 101/73; PULSE 80; TEMP 97.9
[2022-07-02 04:50] LABS: BASO # 0.1 K/mm3 (0.0-0.2); BASO % 1.3 % (0.0-2.0); EOS # 0.3 K/mm3 (0.0-0.7); EOS % 5.2 % (0.0-4.0); GRAN # 3.9 K/mm3 (1.4-6.5); GRAN % 73.8 % (42.2-75.2); LYMPH # 0.6 K/mm3 (1.2-3.4); LYMPH % 11.2 % (20.0-51.0); MEAN CELL VOLUME 77 fl (80.0-100.0); MEAN CORPUSCULAR HGB CONC 31 g/dl (33.0-37.0); MEAN PLATELET VOLUME 11.3 fl (7.4-10.4); MONO # 0.4 K/mm3 (0.1-0.6); MONO % 8.1 % (1.7-9.3); PLATELET COUNT 95 K/mm3 (130-400); RED BLOOD COUNT 3.85 M/mm3 (4.20-5.60); REDCELL DISTRIBUTION WIDTH-CV 18.5 % (11.5-14.5)
[2022-07-02 04:54] LABS: HEMATOCRIT 29.6 % (42.0-52.0); HEMOGLOBIN 9.1 g/dl (13.5-18.0); MEAN CORPUSCULAR HEMOGLOBIN 24 pg (27-31)
[2022-07-02 05:09] LABS: CALCIUM 8.5 mg/dL (8.4-10.2); CREATININE, serum 0.85 mg/dL (0.72-1.25); MAGNESIUM 1.9 mg/dL (1.6-2.6); POTASSIUM 3.6 mmol/L (3.5-4.5)
--- NOTE | 2022-07-02 05:43 | NUR ---
Patient had an uneventful night. Incontinent of large amounts of urine post lasix requiring bed changes. Noted to have 3+ BLE edema as well as 1+ edema to left upper ext. Scrotum very swollen as well but seems to be less than beginning of shift. Denied pain/nausea/shortness of breath. VS remained stable. Denies current needs. Call light in reach. Will monitor.
[2022-07-02 08:00] VITALS: BP 107/71; PULSE 77; TEMP 97.8
--- NOTE | 2022-07-02 08:46 | NUR ---
Pt sitting in high [employer] eating breakfast. Morning medications administered per eMAR. Shift assessment completed. VSS. PICC in ALEJANDRO remains in place with circumference of 30cm; remains restricted. ABD dressing remains CDI. BLE with dressings in place. No further request at this time. Call light within reach. Fall precautions in place.
[2022-07-02] MEDS ORDERED: ALDACTONE50 MG PO (09:05)
[2022-07-02] MEDS ORDERED: LASIX 40MG TABL40 MG PO (09:05)
[2022-07-02] MEDS ORDERED: FOLIC ACID 11 MG/TA1 PO (09:06)
[2022-07-02] MEDS ORDERED: THIAMINE 1100 MG/TAB PO (09:06)
[2022-07-02] MEDS ORDERED: DUO-KAPS1 CAP PO (09:07)
[2022-07-02 11:00] VITALS: BP 100/70; PULSE 78; TEMP 98.1
--- NOTE | 2022-07-02 11:32 | NUR ---
The clinical team is ready to discharge the patient today. MARKY was notified that the patient's actually had a CVA and is at in [place]. MARKY attempted to contact the patient's daughter, Shreya, to review discharge plan. MARKY left her a voicemail. MARKY then called the phone number for the patient's . The patient's caregiver, Salena Barreto, answered the phone. She states that she will be coming up to the hospital today to belt picker the patient and resume services. MARKY then contacted the patient's son, Reinaldo. Reinaldo states that he is with his mother (the patient's ) at . He states that his mother is going to be discharged today and they will return back home. He confirms the plan for the patient to return home with prior services. MARKY read the IM form outloud to Reinaldo over the phone. Reinaldo verbalized understanding and agreement to discharge today. He gave MARKY approval to sign the form on his behalf. The patient is to discharge back home today, 07/02, with home health services from [facility] for prison/PT/OT and prior private duty services. MARKY notified and faxed orders to Oma at [facility]. No additional needs at this time.
--- NOTE | 2022-07-02 14:00 | NUR ---
Pt discharge instructions given at this time. All questions answered. Supplies for dressings given. Pt escorted out of facility via wheelchair by GERRY Singer and pts PNEUDRAULIC SYSTEMS MECHANIC.
== END 2022-07-02 14:00 | disposition home health service (06) | DRG 871 ==
LOC: COL.ER 10:05 → MEDICAL 13:17
PROVIDERS: Personal Emergency Response Attendant; Physician Assistant; ADMIT Hospitalist
PROC: 02HV33Z Insertion of Infusion Device into Superior Vena Cava, Percutaneous Approach (ICD-10-PCS; principal; 2022-06-25)
PROC: 0W9G3ZX Drainage of Peritoneal Cavity, Percutaneous Approach, Diagnostic (ICD-10-PCS; 2022-06-28)
DX: A41.9 Sepsis, unspecified organism (principal); G93.41 Metabolic encephalopathy; I50.33 Acute on chronic diastolic (congestive) heart failure; R18.8 Other ascites; L03.115 Cellulitis of right lower limb; N17.9 Acute kidney failure, unspecified; L97.829 Non-pressure chronic ulcer of other part of left lower leg with unspecified severity; L97.819 Non-pressure chronic ulcer of other part of right lower leg with unspecified severity; G93.40 Encephalopathy, unspecified; I27.20 Pulmonary hypertension, unspecified; I48.91 Unspecified atrial fibrillation; E87.70 Fluid overload, unspecified; T68.XXXA Hypothermia, initial encounter; I95.9 Hypotension, unspecified; G20 Parkinson's disease; F10.10 Alcohol abuse, uncomplicated; D69.6 Thrombocytopenia, unspecified; D64.9 Anemia, unspecified; I73.9 Peripheral vascular disease, unspecified; K74.60 Unspecified cirrhosis of liver; I11.0 Hypertensive heart disease with heart failure; B95.61 Methicillin susceptible Staphylococcus aureus infection as the cause of diseases classified elsewhere; B95.4 Other streptococcus as the cause of diseases classified elsewhere; B96.89 Other specified bacterial agents as the cause of diseases classified elsewhere; E87.6 Hypokalemia; I08.1 Rheumatic disorders of both mitral and tricuspid valves; B95.2 Enterococcus as the cause of diseases classified elsewhere; Z95.0 Presence of cardiac pacemaker; Z79.82 Long term (current) use of aspirin; Z87.891 Personal history of nicotine dependence
CPT/HCPCS: OP; C1751; G0378; J1940; J2543; J3370; J7030; J7040; J7050

== ENCOUNTER 2022-07-14 17:21 | Inpatient (IN) | payer MEDICARE, BC ==
[~2022-07-14] VITALS: Ht 190 cm; Wt 113.6 kg
[2022-07-14] VITALS (183 sets, daily range): BP systolic 92; BP diastolic 37; PULSE 74; TEMP 35.6; O2SAT 78–100
[~2022-07-14 17:21] MED LIST changes: +ALDACTONE50 MG PO; +AMOXICILLIN 8751 TAB PO; +BACTRIM DS 8001 TAB PO; +DUO-KAPS1 CAP PO; +FOLIC ACID 11 MG/TA1 PO; +THIAMINE 1100 MG/TAB PO
[2022-07-14 18:02] LABS: ARTERIAL BLD GAS O2 SATURATION 88.4 % (92-100); ARTERIAL BLD GAS TCO2 CT 21.9; ARTERIAL BLOOD GAS BASE EXCESS -4.2 (-2-2); ARTERIAL BLOOD GAS HCO3 20.8 meq/L (22-26); ARTERIAL BLOOD GAS PCO2 37.6 mmHg (35-45); ARTERIAL BLOOD GAS PO2 55.8 mmHg (80-100); ARTERIAL BLOOD GAS pH 7.36 (7.35-7.45)
[2022-07-14 18:14] LABS: COLLECTION METHOD CATHETER
[2022-07-14 18:16] LABS: BASO # 0.1 K/mm3 (0.0-0.2); BASO % 1.3 % (0.0-2.0); EOS # 0.1 K/mm3 (0.0-0.7); EOS % 1.6 % (0.0-4.0); GRAN # 4.6 K/mm3 (1.4-6.5); GRAN % 74.3 % (42.2-75.2); HEMOGLOBIN 11.2 g/dl (13.5-18.0); LYMPH # 0.8 K/mm3 (1.2-3.4); LYMPH % 13.5 % (20.0-51.0); MEAN CELL VOLUME 77 fl (80.0-100.0); MEAN CORPUSCULAR HEMOGLOBIN 23 pg (27-31); MEAN CORPUSCULAR HGB CONC 30 g/dl (33.0-37.0); MONO # 0.5 K/mm3 (0.1-0.6); MONO % 8.8 % (1.7-9.3); PLATELET COUNT 280 K/mm3 (130-400); RED BLOOD COUNT 4.78 M/mm3 (4.20-5.60); REDCELL DISTRIBUTION WIDTH-CV 19.2 % (11.5-14.5)
[2022-07-14 18:17] LABS: HEMATOCRIT 36.8 % (42.0-52.0)
[2022-07-14 18:34] LABS: ALBUMIN 3.5 gm/dL (3.4-4.8); BILIRUBIN,TOTAL 1.9 mg/dL (0.2-1.2); CALCIUM 9.7 mg/dL (8.4-10.2); CREATININE, serum 1.99 mg/dL (0.72-1.25); POTASSIUM 4.8 mmol/L (3.5-4.5); TOTAL PROTEIN 6.9 gm/dL (6.2-8.1)
[2022-07-14 18:34] LABS: URINE COLOR Yellow (YELLOW)
[2022-07-14 18:35] LABS: PH 5.5 (5.0-8.5); URINE APPEARANCE Cloudy (CLEAR/HAZY); URINE GLUCOSE Negative (NEGATIVE); URINE KETONE Negative (NEGATIVE); URINE PROTEIN(semi-quant) 1+ (NEGATIVE); URINE UROBILINOGEN 0.2 E.U/dL (0.2-1.0)
[2022-07-14 18:36] LABS: URINE BLOOD Negative (NEGATIVE); URINE NITRATE Negative (NEGATIVE)
[2022-07-14 18:38] LABS: SQUAMOUS EPITHELIAL None Seen /hpf (0-10); URINE BACTERIA None Seen /hpf (NONE SEEN); URINE RBC 0-2 /hpf (0-2)
[2022-07-14 18:40] LABS: TROPONIN-I 0.018 ng/mL (0.00-0.033)
[2022-07-14] MEDS ORDERED: LASIX 20MG TABL20 MG PO (19:53)
[2022-07-14] MEDS ORDERED: LOPRESSOR 225 MG/TAB PO (19:54)
[2022-07-14] MEDS ORDERED: PROTONIX 40MG T40 MG PO (19:54)
--- NOTE | 2022-07-14 20:30 | NUR ---
PT ARRIVED TO THE UNIT AND WAS SETTLED INTO BED AT THIS TIME. PT CAME OVER FROM ED AND WAS PLACED ON COMFORT CARE MEASURES. PT CURRENTLY ON BIPAP UNTIL FAMILY ARRIVES TO UNIT. PADMA MEEKS ON UNIT SPEAKING WITH FAMILY ABOUT NEXT STEPS. PT BROTHER AND FAMILY FRIENDS AT BEDSIDE. PER FAMILY REQUEST BIPAP REMOVED, BUT NASAL CANNULA PLACED FOR COMFORT. PT GIVEN ATIVAN, MORPHINE, SCOPOLAMINE PATCH PLACED, AND HALDOL PER EMAR. ATROPINE DRIPS ORDERED, MENS LOCKER ROOM ATTENDANT NOTIFIED TO VIDEO CONTROL ENGINEER FROM PHARMACY. PT IS RESTING COMFORTABLE IN BED WITH FAMILY AND FRIENDS AT BEDSIDE.
[2022-07-15] VITALS (339 sets, daily range): BP systolic 94–96; BP diastolic 64–71; PULSE 90–105; TEMP 96–96.4; O2SAT 76–100
--- NOTE | 2022-07-15 05:48 | NUR ---
THROUGHOUT THE NIGHT PT GIVEN ATIVAN AND MORPHINE PER EMAR. PTS WORK OF BREATHING BEGAN TO INCREASE. CONSULTED WITH PADMA MEEKS ABOUT INCREASING PTS MORPHINE DOSAGE. DISCUSSED "DROWNING" SOUND AND IF THERE WAS ANY OTHER OPTIONS TO MINIMIZE SOUND. DISCUSSED THE SOUND WE ARE HEARING IS THE " RATTLE". PT HEART RATE THROUGHOUT THE NIGHT HAS SLOWLY BEGUN TO INCREASE AT TIMES AND O2 SAT HAS SLOWLY BEGUN TO DECREASE. PT GIVEN MEDICATIONS PER EMAR IN ATTEMPTS TO KEEP PT CDOMFORTABLE.
--- NOTE | 2022-07-15 08:55 | NUR ---
Field Service Technician Poultry, RN, reached out to [facility], [employer] # [phone] at [phone]. Pt is not eligible for donation. Reached out to family selected home, [employer] at [phone] and requested pickup.
--- NOTE | 2022-07-15 09:17 | NUR ---
Antoinette notified that patient this morning. ANTOINETTE met with patients and sons at bedside. business supervisor in room confirming home. Laly is currently at [facility]. She verbalizes that she is ready to return to the residential and would like for this SW to arrange transportation. Phone call made to Delmis at [facility] who will notify me with a transportation time.
--- NOTE | 2022-07-15 11:21 | NUR ---
PATIENT TRANSFERRED TO ROOM 353 FROM ICU ACCOMPANIED BY COUNSELOR AID X2 AT 0740. PATIENT TRANSFERRED TO MEDICAL BED WITH 4 STAFF ASSIST. WHILE ATTEMPTING TO COMPLETE ASSESSMENT AT 0745, PATIENT'S RESPIRATORY RATE NOTED TO DROP TO 2. FAMILY INVITED INTO ROOM TO VISIT WITH PATIENT PATIENT'S PASSING WAS LIKELY IMMINENT. THIS RN WENT BACK INTO ROOM AT 0805 TO CHECK ON PATIENT AND FAMILY, PATIENT NOTED TO HAVE RESPIRATORY RATE OF 0 AND NO HEARTBEAT. SENIOR DATA MINING ANALYST NOTIFIED, PATIENT VERIFIED BY THIS RN AND SENIOR DATA MINING ANALYST AT 0806. DR. STARK NOTIFIED, WHO SPOKE WITH THE FAMILY AND ASSESSED PATIENT. CHRISTIAN SCIENCE HEALER AND SW UPDATED. HOME OF CHOICE PER FAMILY IS [facility] IN [place]. POST MORTUM CARE COMPLETED, IV AND CATHETER REMOVED PRIOR TO DISCHARGE. PATIENT SENT TO HOME WITH [place] ON. ALL OTHER PATIENT BELONGINGS SENT WITH FAMILY.
--- NOTE | 2022-07-15 11:32 | NUR ---
PATIENT DISCHARGED TO [facility] IN [place] AT 1030.
--- NOTE | 2022-07-15 12:02 | NUR ---
Vamp Seamer was called to room due to the passing of the PT. Pt's and family and friends were in the room. Vamp Seamer prayed with family and family appreciated the lumber piler operator's visit. Vamp Seamer will follow up with family as needed.
== END 2022-07-15 10:30 | disposition expired | DRG 291 ==
LOC: COL.ER 17:21 → ICU 19:37 → MEDICAL 07-15 07:40
PROVIDERS: Emergency Medicine; Nurse Practitioner Family; ADMIT Student in an Organized Health Care Education/Training Program
PROC: 5A09357 Assistance with Respiratory Ventilation, Less than 24 Consecutive Hours, Continuous Positive Airway Pressure (ICD-10-PCS; principal; 2022-07-14)
DX: I11.0 Hypertensive heart disease with heart failure (principal); I50.33 Acute on chronic diastolic (congestive) heart failure; J96.01 Acute respiratory failure with hypoxia; N17.9 Acute kidney failure, unspecified; E87.20 Acidosis, unspecified; G93.40 Encephalopathy, unspecified; Z66 Do not resuscitate; Z51.5 Encounter for palliative care; G20 Parkinson's disease; I48.91 Unspecified atrial fibrillation; Z20.822 Contact with and (suspected) exposure to COVID-19; T68.XXXA Hypothermia, initial encounter; D64.9 Anemia, unspecified; I27.20 Pulmonary hypertension, unspecified; I73.9 Peripheral vascular disease, unspecified; F02.80 Dementia in other diseases classified elsewhere, unspecified severity, without behavioral disturbance, psychotic disturbance, mood disturbance, and anxiety; E87.5 Hyperkalemia; I95.9 Hypotension, unspecified; K70.31 Alcoholic cirrhosis of liver with ascites; F10.11 Alcohol abuse, in remission; K70.40 Alcoholic hepatic failure without coma; Z79.82 Long term (current) use of aspirin
CPT/HCPCS: A4314; J1630; J1940; J2060; J2270